=== PATIENT | male | born 1975 | race Caucasian/White ===

== ENCOUNTER 2019-09-23 08:45 | Emergency (ER) | payer OTHER ==
[~2019-09-23] VITALS: Ht 180.3 cm; Wt 112.3 kg
[~2019-09-23 08:45] MED LIST: ONDA4TAB10 PO; OXYC-302 PO
--- NOTE | 2019-09-23 09:21 | NUR ---
first contact with pt. pt c/o abdominal pain since march. Seen at [facility], however last three months worsening pain. H pylori neg, reports pain to left quads. Told to come to ED. pt also c/o diarrhea as well. pt's aox4. resps even and unlabored. all monitors in place. call light within reach.
[2019-09-23] MEDS ORDERED: SODIUM CHLORIDE FLUSH 10ML SYR IVF ONE (09:30)
[2019-09-23] MEDS ORDERED: MAALOX/HYOSCYAMINE/LIDOCAINE 45 ML BTL PO ONE (09:30)
--- NOTE | 2019-09-23 09:32 | NUR ---
ekg done at this time.
[2019-09-23] MEDS ORDERED: MAALOX/HYOSCYAMINE/LIDOCAINE 45 ML BTL ONE (09:33)
--- NOTE | 2019-09-23 09:55 | NUR ---
PT AWARE OF UA. URINE CUP IN ROOM.
[2019-09-23 10:05] LABS: BASOPHILS # (AUTO) 0.03 x10^3/uL (0-0.1); BASOPHILS % (AUTO) 0 % (0-1); EOSINOPHILS # (AUTO) 0.24 x10^3/uL (0-0.4); EOSINOPHILS % (AUTO) 4 % (1-7); LYMPHOCYTES # (AUTO) 1.43 x10^3/uL (1-3.4); LYMPHOCYTES % (AUTO) 23 % (22-44); MD NO; MEAN CORPUSCULAR HGB CONC 34.1 g/dL (33.2-36.2); MEAN CORPUSCULAR VOLUME 87.8 fL (81-97); MEAN PLATELET VOLUME 7.9 fL (7.4-10.4); MONOCYTES % (AUTO) 6 % (2-9); NEUTROPHILS # (AUTO) 4.27 x10^3/uL (1.8-6.8); NEUTROPHILS % (AUTO) 67 % (42-75); PLATELET COUNT 285 x10^3/uL (130-400); RED BLOOD COUNT 5.66 x10^6/uL (4.38-5.82); RED CELL DISTRIBUTION WIDTH 13.6 % (9.4-14.8)
[2019-09-23 10:09] LABS: ALANINE AMINOTRANSFERASE 83 U/L (12-78); ALBUMIN 3.9 g/dL (3.4-5.0); ANION GAP 6 mmol/L (5-15); CALCIUM 8.8 mg/dL (8.5-10.1); CHLORIDE 108 mmol/L (98-107); CREATININE 0.97 mg/dL (0.7-1.3)
[2019-09-23 10:11] LABS: ALKALINE PHOSPHATASE 61 U/L (45-117); TOTAL PROTEIN 7.7 g/dL (6.4-8.2)
--- NOTE | 2019-09-23 10:28 | NUR ---
pt back to room from with steady gait. ua collected and sent.
[2019-09-23 10:33] LABS: MICROSCOPIC NOT IND
[2019-09-23 10:38] LABS: CULTURE INDICATED? NO
[2019-09-23] MEDS ORDERED: MORPHINE SULFATE 4 MG/ML, 1ML ONE (10:59)
[2019-09-23] MEDS ORDERED: ONDANSETRON 2MG/ML, 2ML ONE (10:59)
[2019-09-23] MEDS ORDERED: ONDANSETRON 2MG/ML, 2ML IVPush ONE (11:00)
[2019-09-23] MEDS ORDERED: MORPHINE SULFATE 4 MG/ML, 1ML IVPush PRN (11:00)
--- NOTE | 2019-09-23 11:07 | NUR ---
pt medicated per emar. pt tolerated well.
--- NOTE | 2019-09-23 11:15 | NUR ---
pt to ct at this time.
[2019-09-23] MEDS ORDERED: OMNIPAQUE 350 MG/ML, 100ML BOTTLE ONE (11:30)
--- NOTE | 2019-09-23 11:53 | NUR ---
pt back to room from ct. pt resting in [facility]. pt's aox4. resps even and unlabored.
--- NOTE | 2019-09-23 12:57 | NUR ---
report given to john quiles.
[2019-09-23 13:22] VITALS: BP 113/65
== END 2019-09-23 13:23 | disposition home or self-care (01) ==
LOC: ED 09:09
DX: K21.9 Gastro-esophageal reflux disease without esophagitis (principal); Z90.49 Acquired absence of other specified parts of digestive tract
CPT/HCPCS: 36415; 74177; 80053; 81003; 83690; 85025; 93005; 96374; 96375; 99285; J2270; J2405; Q9967